=== PATIENT | male | born 1955 | race African-American/Black ===

== ENCOUNTER 2020-12-05 07:48 | Inpatient (IN) | payer MEDICAID, OTHER ==
[2020-12-05] VITALS (17 sets, daily range): BP systolic 112–154; BP diastolic 61–85
[~2020-12-05] VITALS: Ht 172.7 cm; Wt 82.6 kg
[2020-12-05] MEDS ORDERED: CEFTRIAXONE 1 G PREMIX 50 ML IV ONE (08:15)
[2020-12-05] MEDS ORDERED: LACTATED RINGERS 1,000 ML IV SCH ×2 (08:15)
[2020-12-05] MEDS ORDERED: VANCOMYCIN 1 G PREMIX 200 ML IV ONE (08:15)
[2020-12-05 08:34] LABS: BG CARBOXYHEMOGLOBIN 0.2 % (0.5-1.5); BG DEOXYHEMOGLOBIN 1.7 % (0.0-5.0); BG HCO3 ACT 24.1 mmol/L (22.0-26.0); BG METHEMOGLOBIN 1.1 % (0.0-1.5); BG OXYGEN SATURATION 98.3 % (92.0-98.5); BG PCO2 37.3 mmHg (35.0-45.0); BG PH 7.429 (7.350-7.450); BG PO2 294.2 mmHg (75.0-100.0); BG SAMPLE SITE RIGHT BRACHIAL; BG TOTAL HEMOGLOBIN 10.3 g/dL (12.0-18.0); BG VENT MODE MASK - NRB
[2020-12-05 08:50] LABS: BASOPHILS % 0.4 % (0.0-2.0); EOSINOPHILS % 0.1 % (0.0-5.0); HEMATOCRIT. 26.6 % (42.0-52.0); LYMPHOCYTES % 13.4 % (20.0-50.0); MEAN CORPUSCULAR VOLUME 86.1 fL (80.0-94.0); MEAN PLATELET VOLUME 7.9 fl (7.4-10.4); NEUTROPHILS % 75.1 % (40.0-76.0); PLATELET 130 x1000/uL (130-400); RED BLOOD CELL COUNT 3.09 mill/uL (4.7-6.1); RED CELL DISTRIBUTION WIDTH 14.9 % (11.6-14.6)
[2020-12-05 08:57] LABS: CHLORIDE 100 mEq/L (98-107)
[2020-12-05 09:02] LABS: ETHANOL BLOOD < 10 mg/dL
[2020-12-05 09:08] LABS: BETA HYDROXYBUTYRATE 0.9 mMol/L (0.0-0.3); CREATINE KINASE 358 IU/L (39-308)
[2020-12-05 09:15] LABS: INR 1.5; PROTHROMBIN TIME 15.6 sec (9.6-11.0)
[2020-12-05] MEDS ORDERED: SODIUM POLYSTYRENE SULFONATE 15 G/60 ML BOT PO ONE (09:30)
[2020-12-05] MEDS ORDERED: DEXTROSE 50% WATER 50ML SYRINGE IV ONE (09:30)
[2020-12-05] MEDS ORDERED: SODIUM BICARBONATE 8.4% 1 MEQ/ML 50ML SYR IV ONE (09:30)
[2020-12-05] MEDS ORDERED: CALCIUM CHLORIDE 1GM/10ML SYR IV ONE (09:30)
[2020-12-05] MEDS ORDERED: ALBUTEROL (0.083%) 2.5MG/3ML NEB HHN ONE (09:30)
[2020-12-05] MEDS ORDERED: INSULIN REGULAR (HUMULIN R) 300UNITS/3ML VIAL IV ONE (09:30)
[2020-12-05 12:14] LABS: CLARITY URINE CLEAR (CLEAR); COLOR URINE DARK YELLOW (YELLOW); KETONES URINE TRACE (NEGATIVE); LEUKOCYTE ESTERASE URINE NEGATIVE (NEGATIVE); NITRITE URINE NEGATIVE (NEGATIVE); OCCULT BLOOD URINE TRACE (NEGATIVE); PROTEIN URINE 2+ (NEGATIVE); SPECIFIC GRAVITY URINE 1.026 (1.005-1.030); UROBILINOGEN URINE 0.2 E.U./dL (0.2-1.0)
[2020-12-05 12:28] LABS: *AMPHETAMINES SCREEN URINE NEGATIVE (NEGATIVE); *BARBITURATES SCREEN URINE NEGATIVE (NEGATIVE); *BENZODIAZEPINES SCREEN URINE PRESUMTIVE POSITIVE (NEGATIVE); *COCAINE SCREEN URINE NEGATIVE (NEGATIVE); METHADONE URINE SCREEN NEGATIVE (NEGATIVE); OPIATES URINE SCREEN PRESUMTIVE POSITIVE (NEGATIVE)
[2020-12-05 12:29] LABS: CANNABINOID URINE SCREEN NEGATIVE (NEGATIVE); PHENCYCLIDINE URINE SCREEN NEGATIVE (NEGATIVE)
[2020-12-05] MEDS ORDERED: ONDANSETRON HCL 4MG/2ML INJ IV PRN (12:45)
[2020-12-05] MEDS ORDERED: DEXTROSE 50% WATER 50ML SYRINGE IV PRN (12:45)
[2020-12-05] MEDS ORDERED: PIPERACILLIN/TAZOBACTAM 3.375 G in DEXT 5% WATER 100 ML IV SCH (12:45)
[2020-12-05] MEDS: SODIUM CHLORIDE 0.9% 1,000 ML IV SCH (13:33)
[2020-12-05] MEDS: INSULIN LISPRO 100 UNITS/ML SUBCUT SCH ×2 (16:29→20:07)
[2020-12-05] MEDS: BLOOD SUGAR DIAGNOSTIC STRIP TEST SCH ×2 (16:29→20:07)
[2020-12-05] MEDS ORDERED: SODIUM POLYSTYRENE SULFONATE 15 G/60 ML BOT PO NR (16:45)
[2020-12-05] MEDS ORDERED: METF-414 PO (17:09)
[2020-12-05 17:27] LABS: TOTAL IRON BINDING CAPACITY 402 ug/dL (250-450)
[2020-12-05] MEDS ORDERED: INSULIN GLARGINE UD 100 UNITS/ML SYR SUBCUT NR (18:00)
[2020-12-05] MEDS: PIPERACILLIN/TAZOBACTAM 2.25 G in DEXTROSE 5% WATER 50 ML IV SCH (19:52)
[2020-12-06] VITALS (28 sets, daily range): BP systolic 97–157; BP diastolic 51–125
[2020-12-06] MEDS: PIPERACILLIN/TAZOBACTAM 2.25 G in DEXTROSE 5% WATER 50 ML IV SCH ×2 (02:26→06:05)
[2020-12-06] MEDS: SODIUM CHLORIDE 0.9% 1,000 ML IV SCH ×2 (02:27→15:00)
[2020-12-06 05:30] LABS: BASOPHILS % 0.7 % (0.0-2.0); EOSINOPHILS % 2.2 % (0.0-5.0); HEMATOCRIT. 24.6 % (42.0-52.0); HEMOGLOBIN. 8.4 g/dL (14.0-18.0); MEAN CORPUSCULAR HEMOGLOBIN 28.6 pg (28.0-32.0); MEAN CORPUSCULAR VOLUME 83.8 fL (80.0-94.0); MEAN PLATELET VOLUME 7.8 fl (7.4-10.4); MONOCYTES % 9.2 % (2.0-8.0); NEUTROPHILS % 70.9 % (40.0-76.0); PLATELET 134 x1000/uL (130-400); RED BLOOD CELL COUNT 2.94 mill/uL (4.7-6.1); RED CELL DISTRIBUTION WIDTH 15.1 % (11.6-14.6)
[2020-12-06] MEDS ORDERED: VANCOMYCIN 1 G PREMIX 200 ML IV SCH (06:00)
[2020-12-06] MEDS: HYDROCODONE/ACETAMINOPHEN 5/325MG TABLET PO PRN ×2 (06:04→12:00)
[2020-12-06] MEDS: INSULIN LISPRO 100 UNITS/ML SUBCUT SCH ×4 (06:05→21:04)
[2020-12-06] MEDS: BLOOD SUGAR DIAGNOSTIC STRIP TEST SCH ×4 (06:05→21:04)
[2020-12-06] MEDS ORDERED: DEXTROSE 50% WATER 50ML SYRINGE IV PRN (09:45)
[2020-12-06] MEDS ORDERED: INSULIN GLARGINE UD 100 UNITS/ML SYR SUBCUT SCH (10:00)
[2020-12-06] MEDS ORDERED: DORZ10DR9 LEFTEYE (10:28)
[2020-12-06] MEDS ORDERED: LATA2.5D14 LEFTEYE (10:28)
[2020-12-06] MEDS ORDERED: *PATIENT'S OWN MEDICATION STORAGE XX SCH (11:30)
[2020-12-06] MEDS: INSULIN GLARGINE UD 100 UNITS/ML SYR SUBCUT SCH ×2 (12:00→21:02)
[2020-12-06] MEDS: PIPERACILLIN/TAZOBACTAM 3.375 G in DEXT 5% WATER 100 ML IV SCH ×2 (15:00→17:33)
[2020-12-06] MEDS: LATANOPROST 0.005% OPHTH DROPS 2.5ML LEFTEYE SCH (21:00)
[2020-12-06] MEDS: DORZOLAM/TIMOLOL 2.23/0.68% OPHTH DROPS 10ML LEFTEYE SCH (21:00)
[2020-12-07] VITALS (11 sets, daily range): BP systolic 105–155; BP diastolic 55–119
[2020-12-07] MEDS ORDERED: VANCOMYCIN 1 G PREMIX 200 ML IV SCH
[2020-12-07] MEDS: PIPERACILLIN/TAZOBACTAM 3.375 G in DEXT 5% WATER 100 ML IV SCH ×2 (00:43→06:12)
[2020-12-07] MEDS: INSULIN LISPRO 100 UNITS/ML SUBCUT SCH ×4 (06:13→21:07)
[2020-12-07] MEDS: BLOOD SUGAR DIAGNOSTIC STRIP TEST SCH ×4 (06:14→21:07)
[2020-12-07 06:40] LABS: BASOPHILS % 0.7 % (0.0-2.0); EOSINOPHILS % 3.4 % (0.0-5.0); LYMPHOCYTES % 17.6 % (20.0-50.0); MEAN CORPUSCULAR HEMOGLOBIN 29.2 pg (28.0-32.0); MEAN CORPUSCULAR VOLUME 81.6 fL (80.0-94.0); MEAN PLATELET VOLUME 7.6 fl (7.4-10.4); MONOCYTES % 9.5 % (2.0-8.0); NEUTROPHILS % 68.8 % (40.0-76.0); PLATELET 147 x1000/uL (130-400); RED BLOOD CELL COUNT 2.39 mill/uL (4.7-6.1); RED CELL DISTRIBUTION WIDTH 15.1 % (11.6-14.6)
[2020-12-07 06:43] LABS: CHLORIDE 102 mEq/L (98-107)
[2020-12-07 07:38] LABS: HEPATITIS B SURFACE ANTIGEN NEGATIVE
[2020-12-07] MEDS: SODIUM CHLORIDE 0.9% 1,000 ML IV SCH ×2 (07:43→18:30)
[2020-12-07 08:05] LABS: HEPATITIS A AB IGM NEGATIVE (NEGATIVE)
[2020-12-07 08:24] LABS: HEMATOCRIT. 19.5 % (42.0-52.0)
[2020-12-07] MEDS: INSULIN GLARGINE UD 100 UNITS/ML SYR SUBCUT SCH ×2 (09:33→21:47)
[2020-12-07] MEDS: DORZOLAM/TIMOLOL 2.23/0.68% OPHTH DROPS 10ML LEFTEYE SCH ×2 (09:33→21:06)
[2020-12-07] MEDS: MEROPENEM 1,000 MG in SODIUM CHLORIDE 0.9% 100 ML IV SCH ×2 (12:26→20:49)
[2020-12-07] MEDS: GABAPENTIN 100MG CAPSULE PO SCH ×2 (14:33→21:07)
[2020-12-07] MEDS: VANCOMYCIN 1250MG in DEXTROSE 5% WATER 250ML IV SCH (14:39)
[2020-12-07] MEDS: FAMOTIDINE 20MG TABLET PO SCH (20:50)
[2020-12-07] MEDS: LATANOPROST 0.005% OPHTH DROPS 2.5ML LEFTEYE SCH (21:06)
[2020-12-07 23:08] LABS: HEMATOCRIT. 24.3 % (42.0-52.0); HEMOGLOBIN. 8.8 g/dL (14.0-18.0); MEAN CORPUSCULAR HEMOGLOBIN 29.3 pg (28.0-32.0); MEAN CORPUSCULAR VOLUME 80.8 fL (80.0-94.0); MEAN PLATELET VOLUME 7.3 fl (7.4-10.4); PLATELET 187 x1000/uL (130-400); RED BLOOD CELL COUNT 3.01 mill/uL (4.7-6.1); RED CELL DISTRIBUTION WIDTH 14.8 % (11.6-14.6)
[2020-12-07 23:36] LABS: PLATELET ESTIMATE NORMAL
[2020-12-08] VITALS: BP 140/80
[2020-12-08] MEDS: VANCOMYCIN 1250MG in DEXTROSE 5% WATER 250ML IV SCH ×2 (02:25→14:20)
[2020-12-08 04:00] VITALS: BP 136/68
[2020-12-08] MEDS: MEROPENEM 1,000 MG in SODIUM CHLORIDE 0.9% 100 ML IV SCH ×3 (04:39→21:23)
[2020-12-08] MEDS: GABAPENTIN 100MG CAPSULE PO SCH ×3 (05:31→21:24)
[2020-12-08] MEDS: HYDROCODONE/ACETAMINOPHEN 5/325MG TABLET PO PRN (05:31)
[2020-12-08 06:23] LABS: HEMATOCRIT. 24.1 % (42.0-52.0); HEMOGLOBIN. 8.7 g/dL (14.0-18.0); MEAN CORPUSCULAR HEMOGLOBIN 29.3 pg (28.0-32.0); MEAN CORPUSCULAR VOLUME 81.3 fL (80.0-94.0); MEAN PLATELET VOLUME 7.2 fl (7.4-10.4); PLATELET 189 x1000/uL (130-400); RED BLOOD CELL COUNT 2.96 mill/uL (4.7-6.1); RED CELL DISTRIBUTION WIDTH 14.6 % (11.6-14.6)
[2020-12-08] MEDS: BLOOD SUGAR DIAGNOSTIC STRIP TEST SCH ×4 (06:26→21:25)
[2020-12-08 06:34] LABS: CHLORIDE 106 mEq/L (98-107)
[2020-12-08] MEDS: INSULIN LISPRO 100 UNITS/ML SUBCUT SCH ×4 (06:44→21:33)
[2020-12-08] MEDS: SODIUM CHLORIDE 0.9% 1,000 ML IV SCH ×2 (07:40→21:25)
[2020-12-08 08:37] VITALS: BP 122/66
[2020-12-08] MEDS: DORZOLAM/TIMOLOL 2.23/0.68% OPHTH DROPS 10ML LEFTEYE SCH ×2 (09:18→21:25)
[2020-12-08] MEDS: FAMOTIDINE 20MG TABLET PO SCH ×2 (09:18→16:13)
[2020-12-08] MEDS: INSULIN GLARGINE UD 100 UNITS/ML SYR SUBCUT SCH ×2 (10:17→21:33)
[2020-12-08 12:00] VITALS: BP 128/68
[2020-12-08 15:10] LABS: PLATELET ESTIMATE NORMAL
[2020-12-08 16:00] VITALS: BP 146/77
[2020-12-08 20:08] VITALS: BP 130/72
[2020-12-08] MEDS: LATANOPROST 0.005% OPHTH DROPS 2.5ML LEFTEYE SCH (21:25)
[2020-12-09 00:35] VITALS: BP 134/67
[2020-12-09] MEDS: VANCOMYCIN 1250MG in DEXTROSE 5% WATER 250ML IV SCH (02:27)
[2020-12-09] MEDS: MEROPENEM 1,000 MG in SODIUM CHLORIDE 0.9% 100 ML IV SCH ×2 (04:12→12:30)
[2020-12-09 04:30] VITALS: BP 142/77
[2020-12-09] MEDS: GABAPENTIN 100MG CAPSULE PO SCH (06:15)
[2020-12-09] MEDS: BLOOD SUGAR DIAGNOSTIC STRIP TEST SCH ×2 (06:15→12:10)
[2020-12-09] MEDS: INSULIN LISPRO 100 UNITS/ML SUBCUT SCH ×2 (06:22→12:40)
[2020-12-09 08:45] LABS: CHLORIDE 107 mEq/L (98-107)
[2020-12-09] MEDS ORDERED: BACITRACIN 15GM TUBE TOP SCH (09:00)
[2020-12-09] MEDS: FAMOTIDINE 20MG TABLET PO SCH (11:00)
[2020-12-09] MEDS: DORZOLAM/TIMOLOL 2.23/0.68% OPHTH DROPS 10ML LEFTEYE SCH (11:00)
[2020-12-09] MEDS: INSULIN GLARGINE UD 100 UNITS/ML SYR SUBCUT SCH (11:02)
[2020-12-09 12:55] VITALS: BP 138/74
[2020-12-09 13:06] VITALS: BP 138/72
== END 2020-12-09 15:10 | DRG 720 ==
LOC: ER 08:15 → MICUNO 12:45 → ENRESERV 13:00 → 8WST 12-06 11:16
PROVIDERS: ADMIT Internal Medicine; ATTEND Internal Medicine
PROC: 30233N1 Transfusion of Nonautologous Red Blood Cells into Peripheral Vein, Percutaneous Approach (ICD-10-PCS; principal; 2020-12-07)
DX: A41.9 Sepsis, unspecified organism (principal); N17.0 Acute kidney failure with tubular necrosis; R65.21 Severe sepsis with septic shock; E43 Unspecified severe protein-calorie malnutrition; G93.41 Metabolic encephalopathy; D64.9 Anemia, unspecified; S80.12XA Contusion of left lower leg, initial encounter; E11.65 Type 2 diabetes mellitus with hyperglycemia; E87.1 Hypo-osmolality and hyponatremia; E87.5 Hyperkalemia; J98.11 Atelectasis; L84 Corns and callosities; R26.89 Other abnormalities of gait and mobility; R23.4 Changes in skin texture; Z96.642 Presence of left artificial hip joint; Z68.27 Body mass index [BMI] 27.0-27.9, adult; X58.XXXA Exposure to other specified factors, initial encounter; Y93.89 Activity, other specified; Y92.89 Other specified places as the place of occurrence of the external cause; Y99.8 Other external cause status
CPT/HCPCS: 36415; 36600; 71045; 71250; 74176; 76700; 80048; 80053; 80076; 80202; 80305; 80320; 81003; 82010; 82375; 82550; 82728; 82805; 82962; 83036; 83540; 83550; 83605; 83615; 83880; 84132; 84145; 84484; 85025; 85384; 86140; 86705; 86709; 86803; 86850; 86900; 86920; 87340; 93005; 93970; 97162; 97166; 97535; 99291; J0696; J1815; J2185; J2543; J3370; J3490; J7050; J7060; P9016; G0480